=== PATIENT | female | born 1945 | race Caucasian/White ===

== ENCOUNTER → 2023-11-27 12:17 | Outpatient (REF) | payer MEDICARE, SELFPAY | LOC: MRI 3T 12:17 | PROVIDERS: ATTENDING PHYSICIAN Family Medicine Sports Medicine | DX: M75.52 Bursitis of left shoulder (principal); M75.51 Bursitis of right shoulder | CPT/HCPCS: 73221 ==

== ENCOUNTER → 2023-11-30 15:56 | Outpatient (REF) | payer MEDICARE, SELFPAY | LOC: PAVMRI 15:56 | PROVIDERS: ATTENDING PHYSICIAN Family Medicine Sports Medicine | DX: M25.511 Pain in right shoulder (principal) | CPT/HCPCS: 73221 ==